=== PATIENT | male | born 1955 | race Hispanic/Latino ===

== ENCOUNTER 2018-06-28 08:43 | Inpatient (IN) ==
[2018-06-28] MEDS ORDERED: DUONEB (A & A) INH ONE (09:07)
--- NOTE | 2018-06-28 09:13 | PROVIDER DOCUMENTATION ---
HPI-Respiratory General - General Chief Complaint: Shortness of Breath Stated Complaint: SOB Time Seen by Provider: 06/28/18 08:50 Source: patient Allergies/Adverse Reactions: Patient Allergies Allergy/AdvReac Type Severity Reaction Status Date / Time Penicillins AdvReac VOMITING Verified 05/30/18 08:26 Home Medications: Home Medication List Medication Instructions Recorded Confirmed Last Taken Type Albuterol 2.5MG/Ipratrop 0.5MG 3 ml INH Q4-6H PRN PRN #25 neb 04/17/17 05/30/18 Unknown Rx [Duoneb (A & A)] Aspirin 81 mg PO DAILY chewtab 04/17/17 05/30/18 Unknown Rx Metformin [Glucophage] 500 mg PO DIRECTED #120 tab 04/17/17 05/30/18 Unknown Rx Clarithromycin [Biaxin] 500 mg PO BID #14 tab 05/30/18 Unknown Rx Methylprednisolone [Medrol Dosepak] 4 mg PO DIRECTED #1 pkg 05/30/18 Unknown Rx - History of Present Illness-Resp Nature of Presenting Problem: Patient was seen 3 weeks ago and given a shot. he states he never got better. He went to [facility] for a and got worse over the past several days. He complains of a productive cough. He has shortness of breath. He had chest pressure yesterday. He never sought a primary care physician. Quality of Pain: reports: fullness, pressure Onset/Duration: reports: 2 days ago Timing: reports: still present Context: reports: recent foreign travel Exposure: reports: unknown cause Cough Quality/Degree: reports: moderate, severe, sputum Episode Frequency: chronic episodes Current Respiratory Medication Therapy: Initiated see nurses note, Initiated A/A nebulizer Modifying Factors: improves with: exertion Associated Symptoms: reports: denies symptoms Similar Symptoms Previously?: Yes Recently seen or treated by another doctor?: No Review of Systems - Adult - REVIEW OF SYSTEMS - ADULT Constitutional: reports: no symptoms reported Eyes: reports: no symptoms reported Ears, Nose, Mouth & Throat: reports: ear pain (right ear hurt 2 days ago after a coughing spell) Cardiovascular: reports: see HPI Respiratory: reports: see HPI Gastrointestinal: reports: no symptoms reported Genitourinary: reports: no symptoms reported Musculoskeletal: reports: no symptoms reported Integumentary: reports: no symptoms reported Neurological: reports: no symptoms reported Psychiatric: reports: no symptoms reported Endocrine: reports: no symptoms reported Hematologic/Lymphatic: reports: no symptoms reported Allergic/Immunologic: reports: no symptoms reported Past History - Adult - PAST MEDICAL HISTORY-ADULT Review of Records: reports: Old Records Reviewed, Nursing Assessment Review Respiratory: reports: bronchitis, COPD Physical Exam-General - PHYSICAL EXAM-ADULT Initial Vital Signs Reviewed: Yes - CONSTITUTIONAL General Appearance: appears well, alert, mild distress, obese - EYES Eyes: PERRL/EOMI, pink conjunctivae, anisocoria - HEAD, EARS, NOSE, MOUTH & THROAT HENMT: normocephalic/atraumatic, moist mucous membranes, normal ENT inspection, TMs normal, pharynx normal - NECK Neck: non-tender, full range of motion, supple - RESPIRATORY Respiratory: chest non-tender, no accessory muscle use, wheezing - CARDIOVASCULAR Cardiovascular: normal peripheral pulses, regular rate, rhythm, no edema, no gallop, no JVD, no murmur - GASTROINTESTINAL (ABDOMEN) Abdominal Exam: normal bowel sounds, non tender, soft, no organomegaly, no pulsatile mass - LYMPHATIC Lymphatic: no adenopathy - MUSCULOSKELETAL Back Exam: normal inspection, no CVA tenderness, no vertebral tenderness Extremity: normal range of motion, non-tender, normal gait, normal inspection - SKIN Integumentary: normal color, normal turgor, warm/dry - NEUROLOGIC Neurologic: post hole digger II-XII nml as tested - PSYCHIATRIC Psych/Mental Status: normal mood/affect - HEART Score HEART Score: History: Moderately Suspicious HEART Score: ECG: Normal HEART Score: Age: 45-65 Years HEART Score: Risk Factors for Atherosclerotic Disease: 1 or 2 Risk Factors HEART Score: Troponin: < or = Normal Limit Total HEART Score:: 3 Progress - PLAN OF CARE/RESULTS Progress/Plan/Lab Results: Vital Signs - 8 hr 06/28/18 08:49 06/28/18 08:53 06/28/18 08:55 Temperature 98.1 F Pulse Rate 105 H 106 H 103 H Respiratory Rate 18 23 20 Blood Pressure 148/86 162/106 O2 Sat by Pulse Oximetry 88 L 93 L 93 L 06/28/18 09:00 06/28/18 09:03 06/28/18 09:10 Temperature Pulse Rate 103 H 102 H 97 H Respiratory Rate 16 16 14 Blood Pressure 155/112 O2 Sat by Pulse Oximetry 95 95 96 06/28/18 09:20 06/28/18 09:30 06/28/18 09:33 Temperature Pulse Rate 107 H 86 91 H Respiratory Rate 17 22 20 Blood Pressure 184/109 O2 Sat by Pulse Oximetry 95 96 97 06/28/18 09:40 06/28/18 09:50 06/28/18 10:00 Temperature Pulse Rate 96 H 100 H 98 H Respiratory Rate 23 19 13 Blood Pressure O2 Sat by Pulse Oximetry 96 97 95 06/28/18 10:04 06/28/18 10:10 06/28/18 10:33 Temperature Pulse Rate 93 H 96 H 99 H Respiratory Rate 14 18 16 Blood Pressure 122/87 171/94 O2 Sat by Pulse Oximetry 98 97 93 L 06/28/18 11:03 06/28/18 11:33 06/28/18 12:00 Temperature Pulse Rate 89 84 95 H Respiratory Rate 15 13 14 Blood Pressure 142/99 150/88 O2 Sat by Pulse Oximetry 94 L 96 95 06/28/18 12:03 06/28/18 12:10 Temperature Pulse Rate 80 87 Respiratory Rate 15 13 Blood Pressure 122/80 O2 Sat by Pulse Oximetry 93 L 99 Laboratory Results - last 24 hr 06/28/18 06/28/18 06/28/18 09:00 09:00 09:00 WBC 7.01 RBC 5.05 Hgb 14.0 Hct 43.2 MCV 85.5 MCH 27.7 MCHC 32.4 L RDW Std Deviation 15.4 H Plt Count 302 MPV 9.4 Neut % (Auto) 71.2 Lymph % (Auto) 14.3 L [place] % (Auto) 8.7 Eos % (Auto) 5.1 Baso % (Auto) 0.7 Neut # (Auto) 4.99 Lymph # (Auto) 1.00 L [place] # (Auto) 0.61 H Eos # (Auto) 0.36 Baso # (Auto) 0.05 PT 12.8 INR 0.89 PTT (Actin FS) 28.0 Sodium 132 L Potassium 4.8 Chloride 93 L Carbon Dioxide 29 Anion Gap 10 BUN 7 L Creatinine 0.7 Estimated GFR/1.73 m2 > 60 BUN/Creatinine Ratio 10 Glucose 193 H Calculated Osmolality 268 Calcium 8.8 Total Bilirubin 0.29 AST 36 H ALT 26 Alkaline Phosphatase 69 Creatine Kinase 228 H Creatine Kinase Index 2.8 H CK-MB (CK-2) 6.28 H Troponin T Total Protein 6.8 Albumin 3.7 Globulin 3.1 Albumin/Globulin Ratio 1.2 Plasma Lactate Urine Source Urine Color Urine Turbidity Urine pH Ur Specific [place] Urine Protein Ur Glucose (Stick) Ur Ketones (Stick) Urine Blood Urine Nitrite Urine Bilirubin Urobilinogen Dipstick Urine Leukocytes Urine WBC (Auto) Urine RBC (Auto) U Epithel Cells (Auto) Urine Bacteria (Auto) 06/28/18 06/28/18 06/28/18 09:00 09:00 12:15 WBC RBC Hgb Hct MCV MCH MCHC RDW Std Deviation Plt Count MPV Neut % (Auto) Lymph % (Auto) [place] % (Auto) Eos % (Auto) Baso % (Auto) Neut # (Auto) Lymph # (Auto) [place] # (Auto) Eos # (Auto) Baso # (Auto) PT INR PTT (Actin FS) Sodium Potassium Chloride Carbon Dioxide Anion Gap BUN Creatinine Estimated GFR/1.73 m2 BUN/Creatinine Ratio Glucose Calculated Osmolality Calcium Total Bilirubin AST ALT Alkaline Phosphatase Creatine Kinase Creatine Kinase Index CK-MB (CK-2) Troponin T < 0.010 Total Protein Albumin Globulin Albumin/Globulin Ratio Plasma Lactate 1.0 Urine Source CLEAN CATCH Urine Color STRAW Urine Turbidity CLEAR Urine pH 6.5 Ur Specific [place] 1.000 Urine Protein NEGATIVE Ur Glucose (Stick) NEGATIVE Ur Ketones (Stick) NEGATIVE Urine Blood NEGATIVE Urine Nitrite NEGATIVE Urine Bilirubin NEGATIVE Urobilinogen Dipstick NORMAL Urine Leukocytes NEGATIVE Urine WBC (Auto) <10 Urine RBC (Auto) <10 U Epithel Cells (Auto) <10 Urine Bacteria (Auto) NEGATIVE Orders Category Date Time Status Cardiac Monitoring DIRECTED Care 06/28/18 09:05 Active IV Insertion ORDERED Care 06/28/18 09:05 Completed Notify MD of + Sepsis Screen NOW Care 06/28/18 09:05 Active Notify Physician As Ordered Care 06/28/18 09:05 Active CHEST-1 VIEW [RAD] Stat Exams 06/28/18 09:05 Completed BLOOD CULTURE [BLDCUL] Stat Lab 06/28/18 12:20 Received CBC WITH DIFF [HEME] Stat Lab 06/28/18 09:00 Completed CK PROFILE [SP CHEM] Stat Lab 06/28/18 09:00 Completed COMPREHENSIVE METABOLIC PANEL [CHEM] Stat Lab 06/28/18 09:00 Completed LACTATE, PLASMA [CHEM] Lab 06/28/18 09:00 Completed LACTATE, PLASMA [CHEM] Lab 06/28/18 12:20 Received LACTATE, PLASMA [CHEM] Lab 06/28/18 15:15 Uncollected PROTIME WITH INR [COAG] Stat Lab 06/28/18 09:00 Completed PTT [COAG] Stat Lab 06/28/18 09:00 Completed TROPONIN T Stat Lab 06/28/18 09:00 Completed TROPONIN T Stat Lab 06/28/18 12:36 Ordered URINALYSIS W/POSS RFLX CULT [URINALYSIS] Stat Lab 06/28/18 12:15 Completed 0.9% Sodium Chloride Inj [Ns] 1,000 ml Med 06/28/18 09:49 Discontinued IV 999 mls/hr 0.9% Sodium Chloride Inj [Ns] 1,000 ml Med 06/28/18 09:50 Discontinued IV 999 mls/hr Albuterol 2.5MG/Ipratrop 0.5MG [Duoneb (A & A)] Med 06/28/18 09:07 Discontinued 3 ml INH NOW ONE Aerosol Treatments Routine Oth 06/28/18 09:07 Completed Aerosol Treatments Stat Oth 06/28/18 09:07 Completed Oxygen Device Stat Oth 06/28/18 09:05 Completed Albers body weight used for fluid bolus. Result Diagrams: 06/28/18 09:00 06/28/18 09:00 - REASSESSMENT Reassessment #1 Time Reassessed: 09:51 Status: improving - EKG 1 Time of EKG reading by physician:: 09:18 EKG Read and Signed by:: Cristhian Cavazos EKG Interpretation (*Must complete 3 of following elements*): Normal Rate: 102 Rhythm: nsr Regan: normal QRS: normal MO Interval: normal ST Wave: normal - CONSULTS/PCP/HOSPITALIST Notification #1 *Consult/PCP/Hospitalist*: Piyush Time Discussed: 12:45 Consult Disposition: Admit (Admitt to [facility]) Departure - Departure Date of Disposition Decision: 06/28/18 Time of Disposition Decision: 12:46 DIAGNOSIS: COPD (chronic obstructive pulmonary disease), Chest pain Disposition: ADMITTED INPATIENT 09 Certified Medical Emergency: Emergent Condition: Fair Referrals and Follow-Ups: None,PCP [Primary Care Provider] - - Critical Care Note This patient required my direct & personal management of CC.: No Attestation - Physician/ SARAH Attestation Patient care was provided by Advanced Practice Provider:: No The physician spent face to face time with patient:: Yes Advanced Practice Provider documentation review:: Supervising physician onsite and consulted in the evaluation and care of this patient. The physician did have a face to face encounter with the patient.
[2018-06-28 09:26] LABS: BASO# 0.05 X1000 (0.0-0.2); BASO% 0.7 % (0.0-0.8); EOS# 0.36 X1000 (0.0-0.7); EOS% 5.1 % (0.0-10.0); HEMATOCRIT 43.2 % (42.0-52.0); LYMPH% 14.3 % (20.5-51.1); MCH 27.7 PG (27-31); MCHC 32.4 g/dL (33-37); MCV 85.5 FL (81-99); MONO# 0.61 X1000 (0.11-0.59); MONO% 8.7 % (1.7-9.3); MPV 9.4 FL (7.4-10.4); NEUT# 4.99 X1000 (1.4-6.5); NEUT% 71.2 % (42.2-75.2); PLT 302 X1000 (130-400); RBC 5.05 XMIL (4.7-6.1); RDW 15.4 % (11.5-14.5); WBC 7.01 X1000 (4.8-10.8)
[2018-06-28 09:33] LABS: INR 0.89; PROTIME 12.8 Seconds (11.0-16.0)
[2018-06-28 09:46] LABS: AGAP 10; ALB/GLOB RATIO 1.2; ALBUMIN 3.7 g/dL (3.5-5.0); ALKALINE PHOSPHATASE 69 U/L (32-122); BUN 7 mg/dL (8-22); CALCIUM 8.8 mg/dL (8.8-10.2); CHLORIDE 93 mmol/L (98-107); COSMO 268; CREATININE 0.7 mg/dL (0.7-1.2); ESTIMATED GFR > 60; GLUCOSE 193 mg/dL (70-104); GOT 36 U/L (10-34); GPT 26 U/L (10-44); POTASSIUM 4.8 mmol/L (3.5-5.1); SODIUM 132 mmol/L (136-145); TCO2 29 mmol/L (25-35); TOTAL BILIRUBIN 0.29 mg/dL (0.20-1.00); TOTAL PROTEIN 6.8 g/dL (6.3-8.3)
--- NOTE | 2018-06-28 09:47 | Diag Imaging Result Doc PS360 ---
EXAM: CHEST-1 VIEW INDICATION: sob TECHNIQUE: One view COMPARISON: 05/30/2018 FINDINGS: The lungs are grossly clear. There is no discrete pleural fluid collection or pneumothorax. The central vasculature may be mildly prominent suggesting mild pulmonary venous congestion. The cardiac silhouette is borderline prominent but stable. IMPRESSION: Possible mild pulmonary venous congestion. Electronically signed by Asa Spangler 06/28/2018 9:45 AM
[2018-06-28] MEDS ORDERED: NS 1,000 ML IV ONE ×2 (09:49→09:50)
[2018-06-28 09:59] LABS: CK PROFILE 228 U/L (24-204)
[2018-06-28 10:15] LABS: CK INDEX 2.8 (0.0-2.5); CK-MB 6.28 ng/mL (0.0-5.0)
[2018-06-28 12:15] LABS: URINE SOURCE CLEAN CATCH
[2018-06-28 12:19] LABS: BILIRUBIN URINE NEGATIVE (NEGATIVE); BLOOD URINE NEGATIVE (NEGATIVE); COLOR STRAW; GLUCOSE URINE NEGATIVE (NEGATIVE); KETONE URINE NEGATIVE (NEGATIVE); LEUKOCYTES URINE NEGATIVE (NEGATIVE); NITRITE URINE NEGATIVE (NEGATIVE); PH URINE 6.5; PROTEIN URINE NEGATIVE (NEGATIVE); TURBIDITY URINE CLEAR (CLEAR); UR EPITHELIAL CELLS <10 /HPF (<10); URINE BACTERIA NEGATIVE /HPF; URINE RBC <10 /HPF (<10); URINE WBC <10 /HPF (<10); UROBILINOGEN URINE NORMAL (NORMAL)
--- NOTE | 2018-06-28 13:47 | HISTORY AND PHYSICAL ---
PRIMARY CARE PHYSICIAN: None. CHIEF COMPLAINT: Increased shortness of breath that began this morning along with a productive cough. Also felt some chest pressure and a heaviness that radiated to the left side of his neck. HISTORY OF PRESENTING ILLNESS: This is a 63-year-old male who is noted to be morbidly obese presents to [facility] with complaints of shortness of breath, productive cough, chest pressure. Stated it felt like something "heavy" was sitting on his chest and that it radiated up into the left side of his jaw. Workup in the emergency room showed a sodium of 132. His creatine kinase was 228, CK-MB of 6.28, but his troponin was negative at 0.010. Chest x-ray showed possible mild pulmonary venous congestion so he is being admitted for further evaluation and treatment. He was also noted to have an O2 saturation on room air on arrival of 88%. PAST MEDICAL HISTORY: COPD and morbid obesity. PAST SURGICAL HISTORY: Back surgery, left shoulder surgery, right knee surgery, and jaw surgery. FAMILY HISTORY: His father had emphysema. Mother had hypertension, COPD, and heart disease. SOCIAL HISTORY: Currently lives with family. Denies any tobacco use, stating that he quit 7 years ago and denied any alcohol or illicit drug use. ALLERGIES: Penicillin. HOME MEDICATIONS: A current list will need to be obtained, reconciled, reviewed, and restarted as appropriate. We will place an order for Nursing to update and confirm home medications. DIAGNOSTIC STUDIES: White blood cell count 7.01, hemoglobin 14, hematocrit 43.2, platelets 302,000. PT 12.8, INR 0.89. Sodium 132, potassium 4.8, chloride 93, CO2 of 29, BUN 7, creatinine 0.7, glucose 193. Creatine kinase of 228, CK-MB of 6.28 with a troponin of less than 0.010. Plasma lactate of 1.0. Urinalysis was negative. Chest x-ray showed possible mild pulmonary venous congestion. REVIEW OF SYSTEMS: He denied any fever, chills, blurred vision, dizziness. He did have some chest pressure to the middle of his chest that radiated to his left jaw, shortness of breath, productive cough, wheezing. He denied any abdominal pain, constipation, diarrhea, or burning or hurting with urination. PHYSICAL EXAMINATION: VITAL SIGNS: On arrival, he had a temperature of 98.1 degrees, a pulse of 105, respirations 18, blood pressure 148/86, and was saturating 88% on room air. Currently saturating 99% on O2 via nasal cannula. GENERAL: This is a 63-year-old morbidly obese male who is lying in the bed and answers questions appropriately. HEMNT: Normocephalic, atraumatic. Normal ENT inspection. Oropharynx and nares are clear. EYES: Pupils are equal, round, and reactive to light and accommodation. Extraocular movements are intact. NECK: Normal inspection. Normal range of motion. LUNGS: With wheezing throughout entire posterior lung martinez. Equal lung expansion and chest wall movement are noted. HEART: Regular rate and rhythm without murmurs, rubs, or gallops. ABDOMEN: Soft, nontender, nondistended. Bowel sounds are present x4 quadrants. MUSCULOSKELETAL: He has 5/5 strength x4 extremities. NEUROLOGICAL: The cranial nerves 2 through 12 appear grossly intact. ASSESSMENT: 1. Acute chronic obstructive pulmonary disease exacerbation. 2. Hypoxemia. 3. Chest pain. 4. Hyponatremia. 5. Morbid obesity. OUR PLAN: He will be admitted to the medical unit at [facility]. Placed on telemetry. O2 per protocol. We will apply SCDs for DVT prophylaxis. We will do serial cardiac enzymes x3. Incentive spirometry. DuoNeb q.4 h. Solu-Medrol 80 mg IV q.8h and will wean as he improves. Rocephin 1 gram IV q.24 n., azithromycin 500 IV q.24 h. We will recheck a CBC and BMP in the a.m. Further orders after being seen by attending. Dictated by NORBERTO Kapadia for Natanael Colbert MD cc: NORBERTO Kapadia MD Patient seen and examined by ca. I agree with the assessment and plan of the NORBERTO. Dr. Filemon GALVAN
[2018-06-28] MEDS ORDERED: TYLENOL PO PRN (15:02)
[2018-06-28] MEDS: SOLU-MEDROL IV SCH ×2 (16:07→22:23)
[2018-06-28] MEDS: ROCEPHIN 1 GM in NS 50 ML IV SCH (16:09)
[2018-06-28] MEDS: DUONEB (A & A) INH SCH ×3 (16:15→23:25)
[2018-06-28] MEDS: ZITHROMAX 500 MG/NS 500 MG/250 ML IVPB IV SCH (17:18)
[2018-06-28] MEDS ORDERED: LASIX IV ONE (20:43)
[2018-06-29] MEDS: DUONEB (A & A) INH SCH ×6 (03:48→23:59)
[2018-06-29] MEDS: SOLU-MEDROL IV SCH ×3 (06:31→15:39)
[2018-06-29 06:58] LABS: BASO# 0.01 X1000 (0.0-0.2); BASO% 0.1 % (0.0-0.8); HEMATOCRIT 44.5 % (42.0-52.0); HEMOGLOBIN 14.2 g/dL (14.0-18.0); IMM GRAN# 0.02 X1000 (0.0-0.04); IMM GRAN% 0.2 % (0.0-0.5); LYMPH# 0.66 X1000 (1.2-3.4); LYMPH% 7.9 % (20.5-51.1); MCH 27.5 PG (27-31); MCHC 31.9 g/dL (33-37); MCV 86.2 FL (81-99); MONO# 0.09 X1000 (0.11-0.59); MONO% 1.1 % (1.7-9.3); MPV 9.6 FL (7.4-10.4); NEUT# 7.62 X1000 (1.4-6.5); NEUT% 90.7 % (42.2-75.2); PLT 321 X1000 (130-400); RBC 5.16 XMIL (4.7-6.1); RDW 15.4 % (11.5-14.5)
[2018-06-29] MEDS ORDERED: VANCOMYCIN IV PER PHARMACY MISC SCH (07:00)
[2018-06-29 07:10] LABS: AGAP 12; BUN 9 mg/dL (8-22); CALCIUM 8.9 mg/dL (8.8-10.2); CHLORIDE 95 mmol/L (98-107); COSMO 285; CREATININE 0.9 mg/dL (0.7-1.2); ESTIMATED GFR > 60; GLUCOSE 264 mg/dL (70-104); POTASSIUM 4.7 mmol/L (3.5-5.1); SODIUM 139 mmol/L (136-145); TCO2 32 mmol/L (25-35)
--- NOTE | 2018-06-29 07:41 | EKG Report ---
Test Performed on : 06/28/2018 08:47:13 AM Test Reason : ED. NO EKG ORDER FOR MUSE Blood Pressure : / mmHG Vent. Rate : 102 BPM Atrial Rate : 102 BPM P-R Int : 140 ms QRS Dur : 090 ms QT Int : 354 ms P-R-T Axes : 072 077 053 degrees QTc Int : 461 ms Sinus tachycardia. Otherwise normal ECG When compared with ECG of 30-MAY-2018 09:10, (Unconfirmed) No significant change was found Unconfirmed Result
[2018-06-29] MEDS ORDERED: VANCOMYCIN 2,000 MG in NS 500 ML IV SCH ×4 (09:00)
--- NOTE | 2018-06-29 14:29 | PROGRESS NOTE ---
DATE: 06/29/2018 SUBJECTIVE: The patient resting comfortable , not in any obvious distress. OBJECTIVE: Vital Signs: Temperature 98 degrees, pulse 96, respirations 18, blood pressure 138/81, and oxygen is 94%. HEENT: Patient is atraumatic, normocephalic. Cardiovascular: S1, S2. Respiratory: There is evidence of good air entry bilaterally. Abdomen: Soft, nontender. No masses felt. Extremities: No evidence of edema. Central nervous system: No obvious focal deficit noted. LABORATORY: WBC is 8.4, hematocrit 12.5 with a platelet count of 321,000. Sodium is 139, potassium is 34.7, chloride is 95, bicarb 32, BUN 9, and creatinine 0.9. X-ray of chest shows possible mild pulmonary venous congestion. ASSESSMENT AND PLAN: 1. Chronic obstructive pulmonary disease exacerbation. Maintain patient on nebulized bronchodilators, steroids, as well as antibiotics. 2. Pulmonary vascular congestion. We will obtain 2D echo of the heart to assess the patient's current ejection fraction. I agree with diuretics at this time. 3. Deep vein thrombosis prophylaxis. Sequential compression devices. 4. Gastrointestinal prophylaxis. PPI.. cc: Natanael Colbert MD
--- NOTE | 2018-06-29 15:11 | PROGRESS NOTE ---
DATE: 06/29/2018 ADDENDUM: The patient is diabetic, and as such, will place him on a sliding scale and monitor his blood sugar levels and check hemoglobin A1c level as well. cc: Natanael Colbert MD
--- NOTE | 2018-06-29 15:29 | Diag Imaging Result Doc PS360 ---
EXAM: CHEST-1 VIEW HISTORY: copd, pulmonary vascular congestion TECHNIQUE: Chest single view COMPARISON: 06/28/2018 FINDINGS: The lungs are well expanded. The heart is not enlarged. The vessels are not distended on the current study. There are no infiltrates. No effusion identified. IMPRESSION: No pulmonary edema. Electronically signed by Adria Guzman 06/29/2018 3:26 PM
[2018-06-29] MEDS: ROCEPHIN 1 GM in NS 50 ML IV SCH (15:37)
[2018-06-29] MEDS: HUMULIN R SUBQ SCH (16:29)
[2018-06-29] MEDS: ZITHROMAX 500 MG/NS 500 MG/250 ML IVPB IV SCH (16:29)
[2018-06-30] MEDS: HUMULIN R SUBQ SCH ×5 (00:11→21:59)
[2018-06-30] MEDS: SOLU-MEDROL IV SCH ×4 (00:12→22:00)
[2018-06-30] MEDS: TUSSIONEX LIQUID PO SCH ×3 (00:17→21:59)
[2018-06-30] MEDS: DUONEB (A & A) INH SCH ×6 (03:47→23:35)
[2018-06-30 07:07] LABS: HEMOGLOBIN A1C 9.1 % (4.8-6.0)
--- NOTE | 2018-06-30 10:19 | Diag Imaging Result Doc PS360 ---
EXAM: CT ANGIOGRM PULMONARY ARTERIES 06/30/2018 HISTORY: SOB. r/o PE. TECHNIQUE: This exam was performed using automated exposure control, adjustment of mA or kV according to patient size, and/or use of iterative reconstruction technique. COMMENT: 3-D MIPS were performed. There are no previous studies available for comparison. There is a 10 mm cyst or nodule in the right thyroid lobe. The thoracic aorta is normal in caliber and there is no evidence of dissection. There are calcifications in the left anterior descending coronary artery. There is some motion and beam hardening artifact. There are no definite filling defects in the pulmonary arteries. There is no evidence of acute pulmonary parenchymal disease. There are no abnormal fluid collections. There is no evidence of significant adenopathy. The liver appears to be slightly hypodense suggesting fatty change. No definite evidence of acute disease is present in the visualized portion of the abdomen. The regional skeleton appears to be intact. IMPRESSION: No evidence of pulmonary emboli. Electronically signed by Angelito Damon 06/30/2018 10:17 AM
[2018-06-30] MEDS: ROCEPHIN 1 GM in NS 50 ML IV SCH (14:52)
[2018-06-30] MEDS ORDERED: LANTUS INSULIN SUBQ ONE (15:57)
[2018-06-30] MEDS: ZITHROMAX 500 MG/NS 500 MG/250 ML IVPB IV SCH (16:42)
--- NOTE | 2018-06-30 17:35 | PROGRESS NOTE ---
DATE: 06/30/2018 SUBJECTIVE: This morning, Mr. Muro refers to be feeling better. He said the shortness of breath is getting better and has not had any more chest pain or any pressure on his chest. OBJECTIVELY: Vital Signs: His current vitals, blood pressure is 137/78, pulse of 93, respiration is 18, temperature is 98.1. The patient was saturating between 92-95 percent on room air. General: Mr. Muro is a 63-year-old, morbidly obese, gentleman. He was in bed. BMI is 45.9. He was still on the nasal cannula for oxygenation. Mucosa is pink and moist. Anicteric. Acyanotic. Neck: Supple. Chest: Good air entry bilateral. There is still some distant end- expiratory wheezing. Cardiovascular: Regular rate and rhythm. There are no murmurs, no rubs, no gallops. GI: Abdomen is soft, distended, but nontender. Bowel sounds present. Extremities: No pedal edema. DEHAIRING MACHINE TENDER: Patient is awake, alert, and oriented. LABORATORY DATA: Glucose is 300. Patient's A1c was 9.1. So far, the patient's chest x-ray on admission was no pneumonia. CTA is negative for any PE. ASSESSMENT: 1. Acute hypoxemic respiratory failure. 2. Chronic obstructive pulmonary disease exacerbation. 3. Morbid obesity with suspicion of obstructive sleep apnea and obesity hypoventilation syndrome. 4. Chest discomfort, likely related to the pulmonary disease. 5. Uncontrolled diabetes mellitus with presenting A1c of 9.1. The patient is currently on insulin regimen. 6. History of tobacco abuse. Patient has stopped smoking. We will encourage him to continue abstinence. So, for now we are going to continue with the current antibiotics, bronchodilation therapy and steroids. We will continue with the insulin regimen for adequate glycemic control and patient has been advised to follow up with sleep studies and also Pulmonary and Cardiology on outpatient. The patient refers to me today that he is feeling better and that his symptoms are improving, so I think he is responding to the initial management. cc: Georgi Price MD
[2018-07-01] MEDS ORDERED: HALL'S COUGH LOZENGE MT PRN (01:14)
[2018-07-01] MEDS: DUONEB (A & A) INH SCH ×6 (03:40→23:35)
[2018-07-01 05:01] LABS: BLOOD TYPE ARTERIAL; SAMPLE BLOOD
[2018-07-01 05:02] LABS: ALLEN TEST YES; BE 3.4 mmoll (-3.0-3.0); HCO3-(ACT) 27.3 mmoll (20.0-26.0); METHB 1.1 % (0.0-1.5); O2(CT) 18.4 mL/dL (15.0-23.0); PO2(98.6) 61 mmHg (60-100); SAO2 91.7 % (95.0-100.0); THB 14.7 g/dL (11.5-17.4)
[2018-07-01 05:06] LABS: PCO2(98.6) 65 mmHg (35-45)
[2018-07-01] MEDS: HUMULIN R SUBQ SCH ×4 (06:46→21:49)
[2018-07-01] MEDS: SOLU-MEDROL IV SCH ×3 (06:47→23:06)
[2018-07-01 07:14] LABS: BASO# 0.01 X1000 (0.0-0.2); BASO% 0.1 % (0.0-0.8); HEMOGLOBIN 13.8 g/dL (14.0-18.0); IMM GRAN# 0.05 X1000 (0.0-0.04); IMM GRAN% 0.3 % (0.0-0.5); LYMPH# 0.59 X1000 (1.2-3.4); LYMPH% 3.8 % (20.5-51.1); MCH 27.4 PG (27-31); MCHC 32.1 g/dL (33-37); MCV 85.5 FL (81-99); MONO# 0.53 X1000 (0.11-0.59); MONO% 3.4 % (1.7-9.3); MPV 9.5 FL (7.4-10.4); NEUT% 92.4 % (42.2-75.2); PLT 352 X1000 (130-400); RBC 5.03 XMIL (4.7-6.1); RDW 16.2 % (11.5-14.5); WBC 15.48 X1000 (4.8-10.8)
[2018-07-01 07:44] LABS: AGAP 10; ALB/GLOB RATIO 1.2; ALBUMIN 3.7 g/dL (3.5-5.0); ALKALINE PHOSPHATASE 66 U/L (32-122); BUN 12 mg/dL (8-22); CALCIUM 8.9 mg/dL (8.8-10.2); CHLORIDE 97 mmol/L (98-107); COSMO 286; CREATININE 0.9 mg/dL (0.7-1.2); ESTIMATED GFR > 60; GLUCOSE 293 mg/dL (70-104); GOT 25 U/L (10-34); GPT 29 U/L (10-44); POTASSIUM 4.5 mmol/L (3.5-5.1); SODIUM 138 mmol/L (136-145); TCO2 31 mmol/L (25-35); TOTAL BILIRUBIN 0.19 mg/dL (0.20-1.00); TOTAL PROTEIN 6.9 g/dL (6.3-8.3)
[2018-07-01 07:55] LABS: LYMPHS 4 % (21-51); SEGS 96 % (42-75)
[2018-07-01] MEDS: TUSSIONEX LIQUID PO SCH ×2 (08:51→21:49)
[2018-07-01] MEDS: LANTUS INSULIN SUBQ SCH (08:51)
--- NOTE | 2018-07-01 13:55 | ECHO REPORT ---
ORDER DATE: 06/29/2018 INTERPRETING PHYSICIAN: Dr. Zelalem Peñaloza. ECHOCARDIOGRAPHIC MEASUREMENTS: 1. Interventricular septum 1.0 cm. 2. Left ventricular posterior wall 1.0 cm. 3. Diastolic diameter 5.3 cm. 4. Left atrium 3.9 cm. 5. Aorta 3.9 cm. SUMMARY OF THE 2-DIMENSIONAL IMAGIN. Aortic valve leaflets are trileaflet. 2. Pulmonic valve was normal. 3. Mitral valve was normal. 4. Tricuspid valve was normal. 5. There was mild mitral regurgitation. 6. Mild tricuspid regurgitation. 7. Peak velocity across the tricuspid valve was 3.5 m/sec. 8. Pulmonary artery systolic pressure of 60 mmHg. 9. There is pulmonary arterial hypertension. 10. Peak velocity across the aortic valve less than 2 m/sec. By Doppler studies, there is no aortic stenosis or regurgitation. 11. Normal left ventricular cavity size. Estimated ejection fraction of 60%. 12. There is no pericardial effusion or obvious intracardiac mass or thrombus seen. 13. Technically suboptimal study. Poor acoustic window. 14. Anterior echo-free space pericardial fat pad was noted. cc: MD Natanael Bailey MD [facility]
--- NOTE | 2018-07-01 14:06 | PROGRESS NOTE ---
DATE: 07/01/2018 SUBJECTIVE: Today Mr. Muro referred to be doing slightly better, still has some shortness of breath, but according to him it is improving. OBJECTIVELY: Vital Signs: Blood pressure 143/80, pulse of 60, respiration is 18, temperature is 99.2 degrees. General: Mr. Muro is a 63-year-old gentleman, he is in bed. He was on a BiPAP. HEENT: Mucosa is pink and moist. Anicteric. Acyanotic. Neck: Supple. Chest: Good air entry bilateral. There is still a few end expiratory distant wheezes. Cardiovascular: Regular rate and rhythm. No murmurs, no rubs, no gallops. Gastrointestinal: Abdomen is soft and distended. Bowel sounds were present. There was no hepatosplenomegaly. Extremities: No pedal edema. Distal pulses are present. RAC SPECIALIST: The patient is awake, alert and oriented. There is no focal neurological deficit. LABORATORY DATA: Has been reviewed. The patient's WBC has gone up to 15.48, which I think is related with the steroid use. Hemoglobin and platelet count are within normal limits. PCO2 this morning was 65. Chemistry is also normal except for glucose of 293. CURRENT MEDICATIONS: Have all been reviewed. ASSESSMENT: 1. Acute hypoxemic respiratory failure secondary to chronic obstructive pulmonary disease exacerbation. 2. Acute on chronic hypercarbic respiratory failure. The patient is using a bilevel positive airway pressure. At this point Pulmonary Medicine has also been consulted. 3. Chronic obstructive pulmonary disease exacerbation is gradually improving. The patient is on standard of care. 4. Morbid obesity with suspicion of obesity hypoventilation syndrome and also obstructive sleep apnea. 5. Chest discomfort on presentation, resolved. 6. Uncontrolled diabetes mellitus with presenting A1c of 9.1. We will continue to titrate his insulin demands for better glycemic control. 7. Tobacco abuse. The patient has been counseled to continue abstinence. PLAN: So in general I think Mr. Muro continues to be improving. His ABG this morning showed the pCO2 was slightly elevated, but I think that is where he normally lives. There is an elevation of the bicarbonate, which I think is just a reflection of his chronic respiratory acidosis. We are going to continue with the current therapy, reevaluate his lung findings tomorrow and hopefully get him discharged tomorrow. cc: Georgi Price MD
[2018-07-01] MEDS: ROCEPHIN 1 GM in NS 50 ML IV SCH (17:19)
[2018-07-01] MEDS: ZITHROMAX 500 MG/NS 500 MG/250 ML IVPB IV SCH (18:02)
[2018-07-02] MEDS: DUONEB (A & A) INH SCH ×3 (03:15→11:26)
[2018-07-02 05:15] LABS: ALLEN TEST YES; BE 6.8 mmoll (-3.0-3.0); BLOOD TYPE ARTERIAL; HCO3-(ACT) 30.2 mmoll (20.0-26.0); METHB 0.9 % (0.0-1.5); O2(CT) 19.7 mL/dL (15.0-23.0); O2HB 95.7 % (95.0-99.0); PO2(98.6) 88 mmHg (60-100); SAMPLE BLOOD; SAO2 98.4 % (95.0-100.0); THB 14.6 g/dL (11.5-17.4); pH(98.6) 7.34 (7.35-7.45)
[2018-07-02 05:19] LABS: MODALITY BI PAP; PCO2(98.6) 65 mmHg (35-45)
[2018-07-02 06:27] LABS: MODALITY ROOM AIR
[2018-07-02] MEDS: SOLU-MEDROL IV SCH (06:49)
[2018-07-02] MEDS: HUMULIN R SUBQ SCH ×2 (06:49→12:16)
[2018-07-02 07:03] LABS: BASO# 0.01 X1000 (0.0-0.2); BASO% 0.1 % (0.0-0.8); HEMATOCRIT 43.3 % (42.0-52.0); HEMOGLOBIN 13.8 g/dL (14.0-18.0); IMM GRAN# 0.05 X1000 (0.0-0.04); IMM GRAN% 0.3 % (0.0-0.5); LYMPH# 0.66 X1000 (1.2-3.4); LYMPH% 4.6 % (20.5-51.1); MCH 27.4 PG (27-31); MCHC 31.9 g/dL (33-37); MCV 86.1 FL (81-99); MONO# 0.48 X1000 (0.11-0.59); MONO% 3.3 % (1.7-9.3); MPV 9.3 FL (7.4-10.4); NEUT# 13.22 X1000 (1.4-6.5); NEUT% 91.7 % (42.2-75.2); PLT 325 X1000 (130-400); RBC 5.03 XMIL (4.7-6.1); RDW 15.7 % (11.5-14.5); WBC 14.42 X1000 (4.8-10.8)
[2018-07-02 07:04] LABS: AGAP 6; ALB/GLOB RATIO 1.3; ALBUMIN 3.7 g/dL (3.5-5.0); ALKALINE PHOSPHATASE 61 U/L (32-122); BUN 15 mg/dL (8-22); CALCIUM 8.3 mg/dL (8.8-10.2); CHLORIDE 95 mmol/L (98-107); COSMO 280; CREATININE 0.9 mg/dL (0.7-1.2); ESTIMATED GFR > 60; GLUCOSE 267 mg/dL (70-104); GOT 15 U/L (10-34); GPT 25 U/L (10-44); POTASSIUM 4.5 mmol/L (3.5-5.1); SODIUM 135 mmol/L (136-145); TCO2 34 mmol/L (25-35); TOTAL BILIRUBIN 0.17 mg/dL (0.20-1.00); TOTAL PROTEIN 6.5 g/dL (6.3-8.3)
[2018-07-02] MEDS: TUSSIONEX LIQUID PO SCH (09:44)
[2018-07-02] MEDS: LANTUS INSULIN SUBQ SCH (09:44)
[2018-07-02 11:24] VITALS: BP 158/94
--- NOTE | 2018-07-03 10:51 | DISCHARGE SUMMARY ---
ADMISSION DATE: 06/28/2018 DISCHARGE DATE: 07/02/2018 DISPOSITION: Home. FOLLOW UP: Dr. Ivory. ADMISSION DIAGNOSES: 1. Chronic obstructive pulmonary disease exacerbation. 2. Hypoxemia. 3. Chest pain. 4. Hyponatremia. DIAGNOSES AT TIME OF DISCHARGE: 1. Acute hypoxemic respiratory failure secondary to chronic obstructive pulmonary disease exacerbation. 2. Acute on chronic hypercarbic respiratory failure. 3. Chronic obstructive pulmonary disease exacerbation. 4. Morbid obesity with suspicion of obesity, hypoventilation syndrome and obstructive sleep apnea. Patient advised to follow up with Dr. Ivory. 5. Uncontrolled diabetes mellitus with presenting A1c of 9.1. Patient is currently on insulin regimen. 6. Tobacco abuse. Patient has been counseled. 7. Chest discomfort, resolved. DISCHARGE MEDICATIONS: 1. Metformin 500 p.o. 2. Aspirin 81 mg daily. 3. Prednisone 20 mg daily. 4. Insulin glargine 20 units subcutaneous daily. 5. Ventolin inhaler 2 puffs q.6h p.r.n. 6. Spiriva 2.5 mcg inhaler 2 puffs daily. INVASIVE PROCEDURES DURING ADMISSION: None. IMAGING STUDIES OF SIGNIFICANCE: 1. A chest x-ray did show possible mild pulmonary venous congestion. 2. An echocardiogram showed ejection fraction of 60%. Pulmonary arterial systolic pressure of 60 mmHg. 3. A CTA of the lungs showed no evidence of PE. PRESENTING COMPLAINT: Increased shortness of breath and productive cough. HISTORY OF PRESENTING COMPLAINT: Mr. Muro is a 63-year-old morbidly obese, gentleman who presented to the emergency department because of increasing shortness of breath. Mr. Muro was evaluated, and was found to be extremely bronchospastic, was admitted to the medical floor because of COPD exacerbation. HOSPITAL COURSE: Mr. Muro was started on IV antibiotics, bronchodilation therapy, and steroids. Over the course of the hospital stay, he continues to show improvement. He was transitioned from BiPAP to Venturi mask, and then ultimately to nasal cannula. This morning he was tested for home 2 oxygen, and he did qualify. His oxygen dropped to 84 just on ambulation. Mr. Muro's respiratory symptoms have significantly improved so we think he is stable for discharge. He did not need any subspecialty consult. However, he has been advised to follow up with Dr. Ivory both for the COPD and also for the diagnosis of obstructive sleep apnea. This morning Mr. Muro has been tolerating his meals. He has had regular bowel movement. He is therefore stable for discharge. All the discharge instructions have been discussed with him, the brother and another female family member were all at the bedside at the time of the encounter. TIME SPENT: Time spent for discharge is 35 minutes. cc: MD Dr. Dianelys Dorado
== END 2018-07-02 14:34 | disposition home or self-care (01) | DRG 190 ==
LOC: ED 08:43 → SUATTDRO 14:41 → 4N 14:41
PROVIDERS: ATTEND Internal Medicine
CPT/HCPCS: 71010; 71045; 71275; 80048; 80053; 81001; 82550; 82553; 82805; 82948; 83036; 83605; 83880; 84484; 85025; 85610; 85730; 87040; 87077; 87186; 93005; 93306; 94640; 94660; 94760; 94761; 99285; A9270; J0456; J0696; J1815; J1940; J2920; J2930; J3370; J7030; J7040; Q9967; XXXXX